=== PATIENT | female | born 1980 | race Hispanic/Latino ===

== ENCOUNTER 2017-11-03 17:14 | Emergency (ER) | payer BC ==
[2017-11-03 17:59] LABS: BASOPHILS % (AUTO) 0.3 % (0.0-5.0); EOSINOPHILS % (AUTO) 1.4 % (0.0-8.0); HEMATOCRIT 41.2 % (36-48); LYMPHOCYTES % (AUTO) 26.7 % (21.0-51.0); MEAN CORPUSCULAR HEMOGLOBIN 31.4 pg (27.0-33.0); MEAN CORPUSCULAR HGB CONC 35.1 g/dL (32.0-36.0); MEAN CORPUSCULAR VOLUME 89.5 fL (79-99); MONOCYTES % (AUTO) 5.9 % (3.0-13.0); NEUTROPHILS % (AUTO) 65.7 % (40.0-77.0); PLATELET COUNT (AUTO) 354 K/uL (130-400); RED BLOOD CELL COUNT(AUTO) 4.61 MIL/uL (4.00-5.50); RED CELL DISTRIBUTION WIDTH 13.1 % (11.0-15.5); WHITE BLOOD COUNT (AUTO) 12.2 K/uL (4.8-10.8)
[2017-11-03 18:14] LABS: CREATININE 1.1 mg/dL (0.5-1.5); POTASSIUM 4.2 mmol/L (3.5-5.1)
[2017-11-03 18:19] LABS: ALBUMIN 3.6 g/dL (3.5-5.0); BILIRUBIN,TOTAL 0.2 mg/dL (0.2-1.0); TOTAL PROTEIN, SERUM 7.6 g/dL (6.0-8.3)
== END 2017-11-03 22:57 | disposition home or self-care (01) ==
LOC: EDH 17:14
DX: G89.29 Other chronic pain (principal); R07.89 Other chest pain; R51 Headache
CPT/HCPCS: 36415; 80053; 84484; 85025; 93005

== ENCOUNTER 2018-05-17 11:34 | Emergency (ER) | payer BC ==
[2018-05-17] MEDS ORDERED: SODIUM CHLORIDE 0.9% 1000ML 1,000 ML IV ONE (12:15)
[2018-05-17] MEDS ORDERED: PROCHLORPERAZINE EDISYLATE 10 MG/2 ML VIAL ONE (12:15)
[2018-05-17 12:21] LABS: BASOPHILS % (AUTO) 0.5 % (0.0-5.0); EOSINOPHILS % (AUTO) 2.4 % (0.0-8.0); HEMATOCRIT 41.6 % (36-48); LYMPHOCYTES % (AUTO) 25.5 % (21.0-51.0); MEAN CORPUSCULAR HGB CONC 35.1 g/dL (32.0-36.0); MEAN CORPUSCULAR VOLUME 91.1 fL (79-99); MONOCYTES % (AUTO) 7.5 % (3.0-13.0); NEUTROPHILS % (AUTO) 64.1 % (40.0-77.0); PLATELET COUNT (AUTO) 269 K/uL (130-400); RED BLOOD CELL COUNT(AUTO) 4.56 MIL/uL (4.00-5.50); RED CELL DISTRIBUTION WIDTH 13.6 % (11.0-15.5); WHITE BLOOD COUNT (AUTO) 9.5 K/uL (4.8-10.8)
[2018-05-17 12:44] LABS: CREATININE 0.8 mg/dL (0.5-1.5); POTASSIUM 4.1 mmol/L (3.5-5.1)
== END 2018-05-17 13:43 | disposition home or self-care (01) ==
LOC: EDH 11:34
DX: G43.909 Migraine, unspecified, not intractable, without status migrainosus (principal); R04.0 Epistaxis; R11.10 Vomiting, unspecified
CPT/HCPCS: 36415; 80048; 85025; 96361; 96374; 99284; J0780; J7030

== ENCOUNTER 2025-07-23 02:57 | Emergency (ER) | payer BC ==
[~2025-07-23] VITALS: Ht 170.2 cm; Wt 73.0 kg
[2025-07-23] MEDS: PROCHLORPERAZINE 10MG/2ML INJ IV ONE (03:33)
[2025-07-23] MEDS: 0.9%NACL 1000ML 1,000 ML IV ONE (03:34)
[2025-07-23 03:53] LABS: NUCLEATED RED BLOOD CELLS 0.0 % (0.0-0.19); PLATELET COUNT (AUTO) 248.0 K/uL (130-400); RED BLOOD CELL COUNT(AUTO) 4.16 MIL/uL (4.00-5.50); RED CELL DISTRIBUTION WIDTH 12.1 % (11.0-15.5); WHITE BLOOD COUNT (AUTO) 6.2 K/uL (4.8-10.8)
[2025-07-23 04:13] LABS: CREATININE 0.6 mg/dL (0.5-1.0); GLOMERULAR FILTR. RATE CALC 113.0 mL/min (>90); GLUCOSE,RANDOM 87.0 mg/dL (70-105); SODIUM SERUM 136.0 mmol/L (136-145); UREA NITROGEN, BLOOD 10.0 mg/dL (7-18)
--- NOTE | 2025-07-23 05:08 | ERN ---
General Chief Complaint: Headache Stated Complaint: HEADACHE Time Seen by MD: 03:07 Source: patient History of Present Illness Initial Comments Patient is a 45-year-old female coming in complaining of right facial pain. States that this has been ongoing for a couple of days. She quantifies the pain at 5/10 in his sharp in character. Allergies: Coded Allergies: No Known Allergies (Unverified Allergy, Unknown, 07/23/25) Past Medical History Past Medical History: No Pertinent History Past Surgical History: Cholecystectomy, Other Surgical History Other: DOUBLE SWITCH ROS Dictation CONSTITUTIONAL: No chills, no fever, no weakness, no diaphoresis, no malaise. HEAD/FACE: No signs of trauma. EENT: No eye pain, no blurred vision, no tearing, no double vision, no ear pain, no ear discharge, no nose pain, no nasal congestion, no throat pain, no throat swelling, no mouth pain. RESPIRATORY: No cough, no orthopnea, no SOB, no stridor, no wheezing. CARDIOVASCULAR: No chest pain, no edema, no palpitations, no syncope. GASTROINTESTINAL/ABDOMINAL: No abdominal pain, no constipation, no diarrhea, no nausea, no vomiting. GENITOURINARY: No abnormal discharge, no dysuria, no frequent urination, no hematuria. No complaints of pain in the genitals. MUSCULOSKELETAL: No back pain, no gout, no joint pain, no joint swelling, no muscle pain, no muscle stiffness, no neck pain. INTEGUMENTARY: No change in color, no change in hair/nails, no dryness, no lesion, no lumps, no rash. NEUROLOGICAL/PSYCH: No anxiety, not depressed, no emotional problem, no headache, no numbness, no pre-existing deficit, no history of seizures, no tremors, no weakness. HEMATOLOGIC/LYMPHATIC: Not anemic, no history of blood clots, no apparent bleeding, no bruising, glands not swollen. All Systems Negative, Except as Noted. Physical Exam Physical Exam Dictation VITAL SIGNS: Reviewed. GENERAL APPEARANCE: Alert, oriented x3, no acute distress, obese. HEAD AND FACE: Non-traumatic. EYES: PERRL, pink conjunctivas, eyelid no trauma, anterior chamber clear. EARS: Pinnas intact and no signs of trauma or erythema. Ear canals clear and no discharge. TMs no erythema. NOSE: No discharge, no bleeding. OROPHARYNX: Mouth normal, teeth no caries, tongue pink. Pharynx clear, no erythema. Tonsils no exudates, no abscesses noted. Mucous membrane moist. NECK: Supple, non-tender, no thyromegaly, no masses, no JVD, no bruits. BREAST: Deferred. CHEST: No tenderness, no crepitus, no paradoxical movement, no retractions. LUNGS: Clear, well-ventilated, symmetric, no rales, no wheezing, no rhonchi, no stridor, good breath sounds bilaterally. HEART: Regular rate, regular rhythm, no murmur, no gallops. VASCULAR: No peripheral edema. ABDOMEN: Soft, positive bowel sounds, nondistended, no guarding, nontender, no rebound, no masses no hepatomegaly, no splenomegaly, no Forman's sign, no hernias. RECTAL: Deferred. GENITAL: Deferred. NEUROLOGICAL: Normal speech, gross motor function intact, gross sensory function intact. MUSCULOSKELETAL: Neck nontender, full range of motion, back nontender, full range of motion. EXTREMITIES: Nontender, full range of motion. SKIN: Color pink, dry, no turgor, no rash, no lacerations, no abrasions, no contusions. LYMPHATICS: Deferred. Results Laboratory and Microbiology Lab and Micro Result Laboratory Tests Test 07/23/25 03:24 07/23/25 03:26 Serum Test, Qualitative NEGATIVE (NEGATIVE) White Blood Count 6.2 K/uL (4.8-10.8) Red Blood Count 4.16 MIL/uL (4.00-5.50) Hemoglobin 13.0 g/dL (12.0-16.0) Hematocrit 37.3 % (36-48) Mean Corpuscular Volume 89.7 fL (79-99) Mean Corpuscular Hemoglobin 31.3 pg (27.0-33.0) Mean Corpuscular Hemoglobin Concent 34.9 g/dL (32.0-36.0) Red Cell Distribution Width 12.1 % (11.0-15.5) Platelet Count 248 K/uL (130-400) Mean Platelet Volume 10.0 fL (7.5-10.5) Nucleated Red Blood Cells 0.0 % (0.0-0.19) Sodium Level 136 mmol/L (136-145) Potassium Level 3.3 mmol/L (3.5-5.1) L Chloride Level 105 mmol/L (101-111) Carbon Dioxide Level 26 mmol/L (21-32) Blood Urea Nitrogen 10 mg/dL (7-18) Creatinine 0.6 mg/dL (0.5-1.0) Glomerular Filtration Rate Calc 113 mL/min (>90) Random Glucose 87 mg/dL (70-105) Total Calcium 8.3 mg/dL (8.5-10.1) L Labs Reviewed?: Yes EKG/XRAY/US/CT/MRI CT Scan Comment [facility] [address] [place] [address] IMAGING REPORT Signed PATIENT: MARYCRUZ JOSEPH MR#: [id number] : 1980 SEX: F AGE: 45 LOCATION: [facility] ORDER 7 STATUS: REG ER REPORT#: [id number] SERVICE 5 REASON: right facial pain ORDERING PHYSICIAN: VIRGIL GILLIAM MD PROCEDURE: ORB IAC WO - CT ORB/MARIA ESTHER/EAR W/O CONTRAST EXAM: CT Orbits Without IV contrast. CLINICAL HISTORY: Right facial pain. TECHNIQUE: Axial computed tomography images of the orbits without intravenous contrast. CONTRAST: None. COMPARISON: None provided. FINDINGS: ORBITS: Unremarkable. No retrobulbar hematoma. No post-septal fat stranding or fluid BONES: No acute fracture or aggressive appearing osseous lesion. No periosteal reaction. SINUSES: Minimal mucosal thickening in the left frontal sinus. No sinus air-fluid level in remaining sinuses. SOFT TISSUES: No soft tissue gas. No radiopaque foreign body. IMPRESSION: No acute orbital or facial abnormalities. /[place] DICTATED BY: OSIEL PAEZ Jr., MD DATE: 07/23/25728 ELECTRONICALLY SIGNED BY: OSIEL PAEZ Jr., MD DATE: 07/23/25728 [facility] MDM: Differential diagnosis:sinusitis, facial pain Rationale: Tests considered and ordered secondary to shared decision making include: Previous outside records reviewed: Old ER visits. Risk of complication and/or morbidity or mortality of patient management: None Medications-Per medication reconciliation Need for hospitalization: Patient does not meet criteria for hospitalization. Need for emergency major/minor surgery: No Patient is a 45-year-old female coming in with the complaints. Patient states he had right facial discomfort. CT of the face did not disclose any acute findings laboratory workup with a normal limits. Patient will be discharged in stable condition with a diagnosis sinusitis. ED Course Orders Procedure Category Date Status Time Cbc Without LAB 07/23/25 Complete Differential 03:09 Basic Metabolic Panel LAB 07/23/25 Complete 03:09 Urinalysis LAB 07/23/25 In Process W/Microscopic 03:09 0.9%Nacl 1000ml (Ns PHA 07/23/25 Complete 1000ml) 03:30 Prochlorperazine PHA 07/23/25 Complete 10mg/2ml Inj 03:30 Diphenhydramine Hcl PHA 07/23/25 Complete (Benadryl Inj) 03:30 Acetaminophen 500mg PHA 07/23/25 Complete Tab (Tylenol 500mg T 03:30 Testing, LAB 07/23/25 Complete Serum Hcg 04:16 Ct Orb/Maria Esther/Ear W/O CT 07/23/25 Resulted Contrast 04:16 Current Medications Medications (Trade) Dose Ordered Sig/Jennifer Route PRN Reason Start Time Stop Time Status Last Admin Dose Admin Acetaminophen (TYLenol 500MG TAB) 500 mg ONCE ONCE PO 07/23/25 03:30 07/23/25 03:31 DC 07/23/25 03:34 Diphenhydramine HCl (BENAdryl INJ) 25 mg ONCE ONCE IV 07/23/25 03:30 07/23/25 03:31 DC 07/23/25 03:33 Prochlorperazine Edisylate (Compazine 10mg/ 2ml Inj) 10 mg ONCE ONCE IV 07/23/25 03:30 07/23/25 03:31 DC 07/23/25 03:33 Sodium Chloride 1,000 ml @ 0 mls/hr ONCE ONCE IV 07/23/25 03:30 07/23/25 03:31 DC 07/23/25 03:34 Vital Signs Date Time Temp Pulse Resp B/P (MAP) Pulse Ox O2 Delivery O2 Flow Rate FiO2 07/23/25 05:09 68 17 120/67 98 Room Air* 0 21 07/23/25 03:06 97.9 86 18 123/80 99 Room Air DX & DISP Disposition: Discharge Departure Impression: Primary Impression: Sinusitis Condition: Stable Scripts Fluticasone Propionate (Flonase Nasal [place]) 50 Mcg/Actuation [place] 2 SPRAY NS DAILY, #16 GM 0 Refills Prov: VIRGIL GILLIAM MD 07/23/25 Amoxicillin/Potassium Clav (Amox Tr-K Clv 875-125 mg Tab) 875 Mg-125 Mg Tablet 1 TAB PO BID for 10 Days, #20 TAB 0 Refills Prov: VIRGIL GILLIAM MD 07/23/25 Additional Instructions: FOLLOW-UP WITH PRIMARY CARE PROVIDER IN 1 TO 2 DAYS. TAKE MEDICATIONS DIRECTED HERE IN THE EMERGENCY ROOM. OKAY TO CONTINUE HOME MEDICATIONS UNLESS OTHERWISE DISCUSSED DURING YOUR VISIT IN THE EMERGENCY ROOM TODAY. RETURN TO YOUR NEAREST EMERGENCY ROOM IF SYMPTOMS WORSEN OR IF THERE IS NO IMPROVEMENT. CALL 911 IF YOU NEED IMMEDIATE ASSISTANCE. TAKE TYLENOL [id number] NEEDED AND IF NO CONTRAINDICATIONS ARE PRESENT. INCREASE ORAL HYDRATION. A WOUND CULTURE OR URINE CULTURE WAS ORDERED HERE IN THE EMERGENCY ROOM DEPARTMENT PLEASE FOLLOW-UP WITH PRIMARY CARE PROVIDER AND ADVISE THEM TO GET REPORTS FROM OUR FACILITY. IF YOU HAD ANY RY WRAP/SPLINTS THAT WERE APPLIED HERE, PLEASE DO NOT REMOVE THEM UNTIL YOU SEE YOUR PRIMARY CARE OR SPECIALTY. Referrals: Referrals: SELF,REFERRAL (PCP) TAHIRA HAIRSTON MD Time of Disposition: 06:34 VIRGIL GILLIAM MD Jul 23, 2025 05:08
[2025-07-23 06:20] LABS: APPEARANCE,URINE CLEAR (CLEAR); GLUCOSE, URINE (UA) NEGATIVE (NEGATIVE); LEUKOCYTE ESTERASE ,URINE NEGATIVE Leu/uL (NEGATIVE); NITRATE,URINE NEGATIVE (NEGATIVE); OCCULT BLOOD,URINE +- (TRACE) (NEGATIVE)
[2025-07-23 06:22] LABS: SQUAMOUS EPITHELIAL CELL,UR RARE /HPF (0-2)
--- NOTE | 2025-07-23 06:29 | HMCIMG ---
EXAM: CT Orbits Without IV contrast. CLINICAL HISTORY: Right facial pain. TECHNIQUE: Axial computed tomography images of the orbits without intravenous contrast. CONTRAST: None. COMPARISON: None provided. FINDINGS: ORBITS: Unremarkable. No retrobulbar hematoma. No post-septal fat stranding or fluid BONES: No acute fracture or aggressive appearing osseous lesion. No periosteal reaction. SINUSES: Minimal mucosal thickening in the left frontal sinus. No sinus air-fluid level in remaining sinuses. SOFT TISSUES: No soft tissue gas. No radiopaque foreign body. IMPRESSION: No acute orbital or facial abnormalities. /[place]
[2025-07-23] MEDS ORDERED: AMOX1TAB16 PO (06:35)
[2025-07-23] MEDS ORDERED: FLUT16H NS (06:35)
[2025-07-23 06:39] VITALS: BP 125/76; PULSE 69; RESP 18; TEMP 98.3; O2SAT 98
== END 2025-07-23 06:50 | disposition home or self-care (01) ==
LOC: EDH 02:57
DX: J32.9 Chronic sinusitis, unspecified (principal); Z90.49 Acquired absence of other specified parts of digestive tract
CPT/HCPCS: 99284; 96374; 70480; 96361; 96375; 80048; 84703; 85027; 81001; 36415; J1200; J7030; J0780